=== PATIENT | female | born 1990 | race American Indian/Alaskan Native ===

== ENCOUNTER 2018-03-18 23:13 | Emergency (ER) | payer SELFPAY ==
--- NOTE | 2018-03-19 00:22 | ED PDOC ---
Arrival/HPI - General Time Seen by Provider: 03/19/18 00:09 Historian: Patient - History of Present Illness Narrative History of Present Illness (Text): 03/19/18 00:22 Darlene Mccallum is a 27 year old female, P:1, who presents to the Emergency department complaining of vaginal spotting. Patient states she has been experiencing vaginal spotting since 12:30 yesterday with associated vaginal discharge. Patient states she is unsure how far along she is in her , but notes her last menstrual period was on 01/30/2018 and she had a positive at home test. Patient denies any fever, chills, abdominal pain, nausea, vomiting, diarrhea, back pain, headache, dizziness, or any other complaints. Symptom Onset: Gradual Symptom Course: Unchanged Activities at Onset: Light Context: Home Past Medical History - Provider Review Nursing Documentation Reviewed: Yes Family/Social History - Physician Review Nursing Documentation Reviewed: Yes Family/Social History: Unknown Family HX Allergies/Home Meds Allergies/Adverse Reactions: Allergies No Known Allergies Allergy (Unverified 03/19/18 00:25) Home Medications: Home Meds Medication Instructions Recorded Confirmed No Known Home Med 03/19/18 03/19/18 Review of Systems - Physician Review All systems were reviewed & negative as marked: Yes - Review of Systems Constitutional: Normal. absent: Fevers Eyes: Normal ENT: Normal Respiratory: Normal. absent: SOB, Cough Cardiovascular: Normal. absent: Chest Pain Gastrointestinal: Normal. absent: Abdominal Pain, Diarrhea, Nausea, Vomiting Genitourinary Female: Vaginal Bleeding (+vaginal spotting). absent: Dysuria, Frequency, Hematuria, Urine Output Changes Musculoskeletal: Normal. absent: Back Pain, Neck Pain Skin: Normal Neurological: Normal Endocrine: Normal Hemo/Lymphatic: Normal Psychiatric: Normal Physical Exam Vital Signs Reviewed: Yes Vital Signs Temp Pulse Resp BP Pulse Ox 03/19/18 00:23 98.4 F 80 17 139/76 98 Temperature: Afebrile Blood Pressure: Normal Pulse: Regular Respiratory Rate: Normal Appearance: Positive for: Well-Appearing, Non-Toxic, Comfortable Pain Distress: None Mental Status: Positive for: Alert and Oriented X 3 - Systems Exam Head: Present: Atraumatic, Normocephalic Pupils: Present: PERRL Extroacular Muscles: Present: EOMI Conjunctiva: Present: Normal Mouth: Present: Moist Mucous Membranes Neck: Present: Normal Range of Motion Respiratory/Chest: Present: Clear to Auscultation, Good Air Exchange. No: Respiratory Distress, Accessory Muscle Use Cardiovascular: Present: Regular Rate and Rhythm, Normal S1, S2. No: Murmurs Abdomen: No: Tenderness, Distention, Peritoneal Signs Genitourinary/Pelvic Exam: Present: Normal External Genitalia, Cervical os Closed, Other (RAMESH Mcgowan present as car whacker). No: Vaginal Discharge, Vaginal Bleeding Back: Present: Normal Inspection Upper Extremity: Present: Normal Inspection. No: Cyanosis, Edema Lower Extremity: Present: Normal Inspection. No: Edema Neurological: Present: GCS=15, CN II-XII Intact, Speech Normal Skin: Present: Warm, Dry, Normal Color. No: Rashes Psychiatric: Present: Alert, Oriented x 3, Normal Insight, Normal Concentration Medical Decision Making ED Course and Treatment: 03/19/18 00:22 Impression: 27 year old female complaining of vaginal spotting and vaginal discharge. Plan: -- Transvaginal US -- Labs, Beta-HCG, blood type and screen -- Urinalysis -- Reassess and disposition Progress Notes: 03/19/18 02:30 US , Transabdominal shows: Gestation: There is single intrauterine gestational sac with presence of yolk sac, pole The heart motion at the rate of 120 beats per minute. The yolk sac measures 0.27 cm. Estimated gestational age calculated from [place] rump length is estimated to be 6 weeks 0 days and gestational age calculated from mean sac diameter is estimated to be 5 weeks 6 days. Uterus/cervix: Anteverted uterus.Transabdominally uterus measures 10.0 x 4.8 x 6.1 cm. Ovaries: Right ovarian corpus luteal cyst as described below. Unremarkable left ovary. Free fluid: No free fluid. Bladder: Not well evaluated. IMPRESSION: 1. IUP as described. OB followup as needed. US , Transvaginal shows: Uterus/cervix: IUP as described. Right ovary: Right ovarian corpus luteal cyst measuring 3.4 x 2.8 x 3.3 cm. The right ovary measures 4.5 x 2.8 x 4.6 cm.Duplex assessment demonstrates presence of color Doppler signal and spectral Doppler waveform in right ovary. No torsion. Left ovary: The left ovary measures 3.0 x 2.3 x 2.8 cm.Duplex assessment demonstrates presence of color Doppler signal and spectral Doppler waveform in left ovary. No torsion. Free fluid: No free fluid. Bladder: Empty bladder which cannot be evaluated with this probe. IMPRESSION: 1. Right ovarian corpus luteal cyst measuring 3.4 x 2.8 x 3.3 cm. no torsion. 03/19/18 04:24 Pelvic exam performed, cervical os closed, no vaginal d/c, no vaginal bleeding noted. RAMESH Mcgowan present as car whacker. - Lab Interpretations Lab Results: 03/19/18 00:45 03/19/18 00:45 Lab Results 03/19/18 00:50: Urine Color Yellow, Urine Appearance Clear, Urine pH 6.5, Ur Specific [place] 1.010, Urine Protein Negative, Urine Glucose (UA) Negative, Urine Ketones Negative, Urine Blood Negative, Urine Nitrate Negative, Urine Bilirubin Negative, Urine Urobilinogen 0.2, Ur Leukocyte Esterase Trace H, Urine RBC 0 - 2, Urine WBC 1 - 3, Ur Epithelial Cells 1 - 3, Urine Bacteria Mod , Urine HCG, Qual Positive 03/19/18 00:45: Blood Type O POSITIVE, Antibody Screen Negative, BBK History Checked No verified bt 03/19/18 00:45: WBC 6.7, RBC 4.12, Hgb 11.3 L, Hct 34.3 L, MCV 83.3, MCH 27.4, MCHC 32.9, RDW 14.2, Plt Count 363, MPV 8.7 03/19/18 00:45: Beta HCG, Quant 22844.00 H 03/19/18 00:45: Sodium 138, Potassium 3.8, Chloride 101, Carbon Dioxide 26, Anion Gap 15, BUN 12, Creatinine 0.7, Est GFR ( Amer) > 60, Est GFR (Non- Af Amer) > 60, Random Glucose 79, Calcium 9.9, Total Bilirubin 0.3, AST 25, ALT 43, Alkaline Phosphatase 48, Total Protein 7.4, Albumin 4.2, Globulin 3.1, Albumin/Globulin Ratio 1.4 I have reviewed the lab results: Yes - RAD Interpretation Radiology Orders: 03/19/18 00:26 OB TRANSVAGINAL [US] Stat Machine Steak Tenderizer: Radiologist - Scribe Statement The provider has reviewed the documentation as recorded by the Madeline Mccloud Provider Scribe Attestation: All medical record entries made by the Scribe were at my direction and personally dictated by me. I have reviewed the chart and agree that the record accurately reflects my personal performance of the history, physical exam, medical decision making, and the department course for this patient. I have also personally directed, reviewed, and agree with the discharge instructions and disposition. Disposition/Present on Arrival - Present on Arrival Any Indicators Present on Arrival: No - Disposition Have Diagnosis and Disposition been Completed?: Yes Diagnosis: Threatened miscarriage Disposition: HOME/ ROUTINE Disposition Time: 04:17 Patient Plan: Discharge Patient Problems: Current Active Problems Problem Status Onset Threatened miscarriage Acute Condition: GOOD Discharge Instructions (ExitCare): Threatened Miscarriage (DC) Additional Instructions: Rest/no strenuous physical activity/follow up with your data analysis assistant this week Referrals: Marina Lara MD [Staff Provider] - Follow up with primary
[2018-03-19 00:23] VITALS: TEMP 98.4
[2018-03-19 01:04] LABS: HEMOGLOBIN 11.3 g/dL (12.0-16.0); MEAN CELL VOLUME 83.3 fl (80.0-105.0); MEAN CORPUSCULAR HEMOGLOBIN 27.4 pg (25.0-35.0); MEAN CORPUSCULAR HGB CONC 32.9 g/dl (31.0-37.0); MEAN PLATELET VOLUME 8.7 fl (7.0-11.0); RBC 4.12 10^6/uL (3.5-6.1); RED CELL DISTRIBUTION WIDTH 14.2 % (11.5-14.5); WHITE BLOOD COUNT 6.7 10^3/ul (4.5-11.0)
[2018-03-19 01:05] LABS: PH,URINE 6.5 (4.7-8.0); URINE BILIRUBIN NEGATIVE (NEGATIVE); URINE BLOOD NEGATIVE (NEGATIVE); URINE GLUCOSE (UA) NEGATIVE (NEGATIVE); URINE LEUKOCYTE ESTERASE TRACE Leu/uL (NEGATIVE); URINE PROTEIN NEGATIVE mg/dL (<30 mg/dL); URINE UROBILINOGEN 0.2 E.U./dL (<1 E.U./dL)
[2018-03-19 01:05] LABS: ALB/GLOB RATIO 1.4 (1.1-1.8); ALBUMIN 4.2 g/dL (3.0-4.8); ALT/SGPT 43 U/L (7-56); AST/SGOT 25 U/L (14-36); BLOOD UREA NITROGEN 12 mg/dL (7-21); CALCIUM 9.9 mg/dL (8.4-10.5); GFR AFRICAN-AMERICAN > 60; GFR NON-AFRICAN AMERICAN > 60
[2018-03-19 01:06] LABS: URINE APPEARANCE CLEAR (CLEAR); URINE COLOR YELLOW (YELLOW)
[2018-03-19 01:10] LABS: HCG,QUALITATIVE URINE POSITIVE (NEGATIVE)
[2018-03-19 01:12] LABS: URINE BACTERIA MOD (NEG); URINE RBC 0 - 2 /hpf (0-2)
--- NOTE | 2018-03-19 02:09 | US ---
EXAM: US First Trimester, Transabdominal US , Transvaginal CLINICAL HISTORY: 27 years old, female; Pain; complicated by abdominal or pelvic pain; Lower; First trimester; Gestational age or lmp: 01/30/2018; ; Additional info: Spotting TECHNIQUE: Real-time transabdominal and transvaginal obstetrical ultrasound of the maternal pelvis and a first trimester with image documentation. Transvaginal imaging was used for better evaluation of the fetus and adnexa. COMPARISON: No relevant prior studies available. FINDINGS: Gestation: There is single intrauterine gestational sac with presence of yolk sac, pole The heart motion at the rate of 120 beats per minute. The yolk sac measures 0.27 cm. Estimated gestational age calculated from [place] rump length is estimated to be 6 weeks 0 days and gestational age calculated from mean sac diameter is estimated to be 5 weeks 6 days. Uterus/cervix: Anteverted uterus.Transabdominally uterus measures 10.0 x 4.8 x 6.1 cm. Ovaries: Right ovarian corpus luteal cyst as described below. Unremarkable left ovary. Free fluid: No free fluid. Bladder: Not well evaluated. IMPRESSION: 1. IUP as described. OB followup as needed. EXAM: US Pelvis, Transvaginal US Duplex Arterial/Venous of the Pelvis, Complete CLINICAL HISTORY: 27 years old, female; Pain; complicated by abdominal or pelvic pain; Lower; First trimester; Gestational age or lmp: 01/30/2018; ; Additional info: Spotting TECHNIQUE: Real-time transvaginal pelvic ultrasound (complete) with image documentation. Transvaginal imaging was used for better evaluation of the endometrium and adnexa. Real-time duplex ultrasound scan of the arterial and venous flow of the pelvis with color Doppler flow and spectral waveform analysis. COMPARISON: No relevant prior studies available. FINDINGS: Uterus/cervix: IUP as described. Right ovary: Right ovarian corpus luteal cyst measuring 3.4 x 2.8 x 3.3 cm. The right ovary measures 4.5 x 2.8 x 4.6 cm.Duplex assessment demonstrates presence of color Doppler signal and spectral Doppler waveform in right ovary. No torsion. Left ovary: The left ovary measures 3.0 x 2.3 x 2.8 cm.Duplex assessment demonstrates presence of color Doppler signal and spectral Doppler waveform in left ovary. No torsion. Free fluid: No free fluid. Bladder: Empty bladder which cannot be evaluated with this probe. IMPRESSION: 1. Right ovarian corpus luteal cyst measuring 3.4 x 2.8 x 3.3 cm. no torsion.
[2018-03-19 04:36] VITALS: BP 137/78; PULSE 69; RESP 16; O2SAT 99
== END 2018-03-19 04:35 | disposition home or self-care (01) ==
LOC: ED 23:13
DX: O20.0 Threatened abortion (principal); Z3A.01 Less than 8 weeks gestation of pregnancy

== ENCOUNTER 2018-04-02 18:20 | Emergency (ER) | payer MEDICAID ==
[2018-04-02 18:36] VITALS: RESP 18; BMI 20.4
[2018-04-02] MEDS ORDERED: Sodium Chloride 0.9% 1,000 ML IV STA (19:13)
--- NOTE | 2018-04-02 19:34 | ED PDOC ---
Arrival/HPI - General Chief Complaint: Female Genitourinary Time Seen by Provider: 04/02/18 18:56 Historian: Patient - History of Present Illness Narrative History of Present Illness (Text): 04/02/18 19:31 27-year-old female presents today with intermittent spotting since March 18. Patient states today the spotting increased and she developed some lower abdominal cramping. Patient states she's also had a three-day history of nasal congestion and sneezing. She denies cough. Denies chest pain or shortness of breath. Denies vomiting or diarrhea. No dizziness or weakness. Patient states she was told she had a urinary tract infection but never took the antibiotics. No other complaints. Time/Duration: > week Symptom Onset: Gradual Symptom Course: Intermittent Quality: Cramping Severity Level: Mild Past Medical History - Provider Review Nursing Documentation Reviewed: Yes - Travel History Have you recently traveled outside [place] w/in the past 3 mons?: No - Infectious Disease Hx of Infectious Diseases: None - Psychiatric Hx Substance Use: No - Surgical History Hx Section: Yes (x1) - Anesthesia Hx Anesthesia: No Hx Anesthesia Reactions: No Hx Malignant Hyperthermia: No Family/Social History - Physician Review Nursing Documentation Reviewed: Yes Family/Social History: Unknown Family HX Smoking Status: Never Smoked Hx Alcohol Use: Yes Hx Substance Use: No Allergies/Home Meds Allergies/Adverse Reactions: Allergies No Known Allergies Allergy (Unverified 03/19/18 00:25) Review of Systems - Review of Systems Constitutional: absent: Fatigue, Fevers ENT: Sinus Congestion. absent: Sore Throat Respiratory: absent: SOB, Cough Cardiovascular: absent: Chest Pain, Palpitations Gastrointestinal: Abdominal Pain. absent: Constipation, Diarrhea, Nausea, Vomiting Genitourinary Female: Vaginal Bleeding. absent: Dysuria, Frequency, Hematuria, Vaginal Discharge Musculoskeletal: absent: Arthralgias, Back Pain, Neck Pain Skin: absent: Rash, Pruritis Neurological: absent: Headache, Dizziness Psychiatric: absent: Anxiety, Depression, Suicidal Ideation Physical Exam Vital Signs Reviewed: Yes Vital Signs Temp Pulse Resp BP Pulse Ox 04/02/18 20:50 98.3 F 76 18 105/66 96 04/02/18 18:22 98.8 F 103 H 18 108/73 99 Temperature: Afebrile Blood Pressure: Normal Pulse: Tachycardic Respiratory Rate: Normal Appearance: Positive for: Well-Appearing, Non-Toxic, Comfortable Pain Distress: None Mental Status: Positive for: Alert and Oriented X 3 - Systems Exam Head: Present: Atraumatic Extroacular Muscles: Present: EOMI Conjunctiva: Present: Normal Mouth: Present: Moist Mucous Membranes Neck: Present: Normal Range of Motion Respiratory/Chest: Present: Clear to Auscultation, Good Air Exchange. No: Respiratory Distress, Accessory Muscle Use, Wheezes, Retracting, Rhonchi, Tachypneic Cardiovascular: Present: Regular Rate and Rhythm, Normal S1, S2. No: Murmurs Abdomen: No: Tenderness, Distention, Rebound, Guarding Genitourinary/Pelvic Exam: Present: Normal External Genitalia, Vaginal Bleeding (small amounts of vaginal bleeding noted. ), Cervical os Closed, Other ( chaparoned by santino CHANDLER). No: Vaginal Discharge, Vaginal Lesions, Adenexal Tenderness, Adenexal Mass, Cervical Motion Tendernes, Odor Back: Present: Normal Inspection. No: CVA Tenderness, Midline Tenderness, Paraspinal Tenderness Upper Extremity: Present: Normal ROM Lower Extremity: Present: Normal ROM Neurological: Present: GCS=15, Speech Normal Skin: Present: Warm, Dry, Normal Color. No: Rashes Psychiatric: Present: Alert, Oriented x 3 Medical Decision Making ED Course and Treatment: 04/02/18 19:34 Patient is nontoxic well appearing in no distress. vital signs are stable. CBC: wnl CMP: wnl Beta hC TYPE AND SCREEN: reviewed from 03/19 chart; o+ Urinalysis: + nitrates, + leukocytes + bacteria Ultrasound: FINDINGS: Gestation: A single intrauterine gestational sac is identified, with pole. heart motion is visualized, with a heart rate of 172 bpm. The estimated gestational age is 8 weeks 1 day. The crown-rump length is 1.64 cm. A yolk sac is not visualized. Placenta/amniotic fluid: Cannot be adequately evaluated due to the early gestational age. Uterus/cervix: The uterus measures 8.5 x 5.4 x 6.8 cm. No myometrial mass. Ovaries: Within the right ovary, there is a 3.3 x 2.4 x 2.9 cm corpus luteum cyst. Previously, this measured 3.4 x 2.8 x 3.3 cm. The right ovary measures 4.2 x 3.0 x 3.5 cm. The left ovary measures 3.1 x 1.5 x 1.5 cm. There is physiologic blood flow within the right ovary, without evidence of torsion. There is physiologic blood flow within the left ovary, without evidence of torsion. Small hypoechoic follicles are visualized within the left ovary. Free fluid: No free fluid. IMPRESSION: 1. A single viable intrauterine fetus is identified. 2. The estimated gestational age is 8 weeks 1 day. 3. Within the right ovary, there is a 3.3 x 2.4 x 2.9 cm corpus luteum cyst. On the previous study, this measured 3.4 x 2.8 x 3.3 cm. 4. Additional findings described above. macrobid given Po Discussed all the results the patient. vitals stable; pt in no distress. advised f/u with the agricultural produce sorter within the next 2 days. advised immediate return if symptoms worsen,persist or if new symptoms develop. Patient verbalizes understanding of discharge instructions and need for immediate followup. all aspects of this case were discussed the attending of record. Impression: threatened , urinary tract infection, Vaginal bleeding, URI Tylenol every 4 hours as needed for pain Increase fluids Followup with the associate account director within the next 2 days Macrobid; 1 tablet twice daily x 10 days. Return immediately if symptoms worsen persist or if new symptoms develop: High fevers, heavy bleeding, severe abdominal pain, vomiting, diarrhea, dizziness or weakness or any other concerning symptoms develop. TAKE VITAMINS DAILY. - Lab Interpretations Lab Results: 04/02/18 19:20 04/02/18 19:20 Lab Results 04/02/18 19:20: WBC 8.7 D, RBC 4.48, Hgb 12.3, Hct 36.9, MCV 82.4, MCH 27.5, MCHC 33.3, RDW 14.1, Plt Count 357, MPV 8.5, Gran % 78.1 H, Lymph % (Auto) 10.3 L, [place] % (Auto) 11.1 H, Eos % (Auto) 0.3 L, Baso % (Auto) 0.2, Gran # 6.80 H, Lymph # (Auto) 0.9 L, [place] # (Auto) 1.0 H, Eos # (Auto) 0.0, Baso # (Auto) 0.02 04/02/18 19:20: Beta HCG, Quant [id number] H 04/02/18 19:20: Sodium 139, Potassium 4.0, Chloride 99, Carbon Dioxide 25, Anion Gap 19, BUN 6 L, Creatinine 0.6 L, Est GFR ( Amer) > 60, Est GFR ( Non-Af Amer) > 60, Random Glucose 81, Calcium 9.9, Total Bilirubin 0.3, AST 28, ALT 37, Alkaline Phosphatase 52, Total Protein 8.3, Albumin 4.7, Globulin 3.6, Albumin/Globulin Ratio 1.3 04/02/18 19:20: Urine Color Yellow, Urine Appearance Sl cloudy, Urine pH 7.0, Ur Specific [place] 1.020, Urine Protein 30 H, Urine Glucose (UA) Negative, Urine Ketones >=80, Urine Blood Large H, Urine Nitrate Positive H, Urine Bilirubin Negative, Urine Urobilinogen 4.0 H, Ur Leukocyte Esterase Small H, Urine RBC 1 - 3, Urine WBC 1 - 3, Ur Epithelial Cells 1 - 3, Urine Bacteria Mod - RAD Interpretation Radiology Orders: 04/02/18 19:12 OB TRANSVAGINAL [US] Stat - Medication Orders Current Medication Orders: Discontinued Medications Sodium Chloride (Sodium Chloride 0.9%) 1,000 mls @ 999 mls/hr IV .Q1H1M STA Stop: 04/02/18 20:13 Last Admin: 04/02/18 19:20 Dose: 999 mls/hr eMAR Start Stop Document 04/02/18 19:20 JOArturo (Rec: 04/02/18 19:28 JOArturo [id number]) Intravenous Solution Start Date 04/02/18 Start Time 19:20 End Date 04/02/18 End time 20:20 Total Infusion Time 60 Disposition/Present on Arrival - Present on Arrival Any Indicators Present on Arrival: No History of DVT/PE: No History of Uncontrolled Diabetes: No Urinary Catheter: No History of Decub. Ulcer: No History Surgical Site Infection Following: None - Disposition Have Diagnosis and Disposition been Completed?: Yes Diagnosis: Threatened , Urinary tract infection, Upper respiratory infection Disposition: HOME/ ROUTINE Disposition Time: 21:33 Patient Plan: Discharge Patient Problems: Current Active Problems Problem Status Onset Threatened Acute Upper respiratory infection Acute Urinary tract infection Acute Condition: GOOD Discharge Instructions (ExitCare): Urinary Tract Infections in Adults, Threatened Miscarriage (DC), Bleeding With (DC) Additional Instructions: Tylenol every 4 hours as needed for pain Increase fluids Followup with the associate account director within the next 2 days Macrobid; 1 tablet twice daily x 10 days. Return immediately if symptoms worsen persist or if new symptoms develop: High fevers, heavy bleeding, severe abdominal pain, vomiting, diarrhea, dizziness or weakness or any other concerning symptoms develop. TAKE VITAMINS DAILY. Prescriptions: Nitrofurantoin Macrocrystals [Macrobid] 100 mg PO BID #20 cap Multivit/Folic Acid/I [ Plus] 1 tab PO DAILY #30 tab Referrals: Deng King MD [Staff Provider] - Follow up with primary Sharmin Gloria MD [Staff Provider] - [facility] - Follow up with primary Forms: [employer] (Tongan), WORK NOTE
[2018-04-02 19:39] LABS: BASO # 0.02 K/mm3 (0.0-2.0); BASO % 0.2 % (0.0-3.0); EOS % 0.3 % (1.5-5.0); GRAN # 6.8 (1.4-6.5); GRAN % 78.1 % (50.0-68.0); HEMOGLOBIN 12.3 g/dL (12.0-16.0); LYMPH # 0.9 (1.2-3.4); LYMPH % 10.3 % (22.0-35.0); MEAN CELL VOLUME 82.4 fl (80.0-105.0); MEAN CORPUSCULAR HEMOGLOBIN 27.5 pg (25.0-35.0); MEAN CORPUSCULAR HGB CONC 33.3 g/dl (31.0-37.0); MEAN PLATELET VOLUME 8.5 fl (7.0-11.0); MONO % 11.1 % (1.0-6.0); RBC 4.48 10^6/uL (3.5-6.1); RED CELL DISTRIBUTION WIDTH 14.1 % (11.5-14.5); WHITE BLOOD COUNT 8.7 10^3/ul (4.5-11.0)
[2018-04-02 19:53] LABS: URINE BILIRUBIN NEGATIVE (NEGATIVE); URINE BLOOD LARGE (NEGATIVE); URINE GLUCOSE (UA) NEGATIVE (NEGATIVE); URINE LEUKOCYTE ESTERASE SMALL Leu/uL (NEGATIVE); URINE PROTEIN 30 mg/dL (<30 mg/dL)
[2018-04-02 19:55] LABS: ALB/GLOB RATIO 1.3 (1.1-1.8); ALBUMIN 4.7 g/dL (3.0-4.8); ALT/SGPT 37 U/L (7-56); AST/SGOT 28 U/L (14-36); BLOOD UREA NITROGEN 6 mg/dL (7-21); CALCIUM 9.9 mg/dL (8.4-10.5); GFR AFRICAN-AMERICAN > 60; GFR NON-AFRICAN AMERICAN > 60; URINE APPEARANCE SL CLOUDY (CLEAR); URINE COLOR YELLOW (YELLOW)
[2018-04-02 20:08] LABS: URINE BACTERIA MOD (NEG)
--- NOTE | 2018-04-02 22:35 | US ---
EXAM: US First Trimester, Transabdominal US , Transvaginal EXAM DATE/TIME: 04/02/2018 7:12 PM CLINICAL HISTORY: The patient age is 27 years old and is female; Pain; complicated by abdominal or pelvic pain; Lower; First trimester; Gestational age or lmp: 8weeks 2days; ; Additional info: /pain/bleeding Facility exam id and description: Us obtransvag ob transvaginal TECHNIQUE: Real-time transabdominal and transvaginal obstetrical ultrasound of the maternal pelvis and a first trimester with image documentation. Transvaginal imaging was used for better evaluation of the fetus and adnexa. COMPARISON: US - OB TRANSVAGINAL 2018-03-19 01:26 FINDINGS: Gestation: A single intrauterine gestational sac is identified, with pole. heart motion is visualized, with a heart rate of 172 bpm. The estimated gestational age is 8 weeks 1 day. The crown-rump length is 1.64 cm. A yolk sac is not visualized. Placenta/amniotic fluid: Cannot be adequately evaluated due to the early gestational age. Uterus/cervix: The uterus measures 8.5 x 5.4 x 6.8 cm. No myometrial mass. Ovaries: Within the right ovary, there is a 3.3 x 2.4 x 2.9 cm corpus luteum cyst. Previously, this measured 3.4 x 2.8 x 3.3 cm. The right ovary measures 4.2 x 3.0 x 3.5 cm. The left ovary measures 3.1 x 1.5 x 1.5 cm. There is physiologic blood flow within the right ovary, without evidence of torsion. There is physiologic blood flow within the left ovary, without evidence of torsion. Small hypoechoic follicles are visualized within the left ovary. Free fluid: No free fluid. IMPRESSION: 1. A single viable intrauterine fetus is identified. 2. The estimated gestational age is 8 weeks 1 day. 3. Within the right ovary, there is a 3.3 x 2.4 x 2.9 cm corpus luteum cyst. On the previous study, this measured 3.4 x 2.8 x 3.3 cm. 4. Additional findings described above.
[2018-04-02 23:08] VITALS: BP 110/72; PULSE 75; TEMP 98.4; O2SAT 99
== END 2018-04-02 23:10 | disposition home or self-care (01) ==
LOC: ED 18:20
DX: O20.0 Threatened abortion (principal); O23.41 Unspecified infection of urinary tract in pregnancy, first trimester; O99.511 Diseases of the respiratory system complicating pregnancy, first trimester; Z3A.08 8 weeks gestation of pregnancy
CPT/HCPCS: 76817; 80053; 81001; 84702; 85025; 87086; 96360; 99284; J7030